=== PATIENT | female | born 1985 | race Caucasian/White ===

== ENCOUNTER 2016-06-17 09:25 | Emergency (ER) | payer OTHER ==
[2016-06-17] MEDS ORDERED: ONDANSETRON 4 MG/2ML 2 ML VIAL ONE (10:32)
[2016-06-17] MEDS ORDERED: NALBUPHINE HCL 10 MG/ML AMP ONE ×2 (10:32→13:49)
[2016-06-17 11:00] LABS: BASO % 0.4 % (0.2-1.0); EOS # 0.2 (0.0-0.5); EOS % 1.8 % (0.9-2.9); HEMATOCRIT 40.2 % (37.0-47.0); HEMOGLOBIN 13.5 gm/l (12.0-16.0); IMM NEUT% 0.4 % (0-1); LYMPH # 3.5 (1.0-4.8); LYMPH % 33.6 % (15-45); MEAN CELL VOLUME 84.3 fl (81.0-99.0); MEAN CORPUSCULAR HEMOGLOBIN 28.3 pg (27.0-31.0); MEAN CORPUSCULAR HGB CONC 33.6 g/dl (33.0-37.0); MEAN PLATELET VOLUME 10.2 fl (7.4-10.4); MONO # 0.6 (0.0-0.8); NEUT % 57.8 % (43-75); PLATELET COUNT 290 K/mm3 (130-400); RED CELL DISTRIBUTION WIDTH 12.1 % (11.5-14.5)
[2016-06-17 11:02] LABS: HCG,QUALITATIVE URINE NEGATIVE; URINE BILIRUBIN NEGATIVE (NEGATIVE); URINE BLOOD NEGATIVE (NEGATIVE); URINE GLUCOSE (UA) NEGATIVE (NEGATIVE); URINE LEUKOCYTE ESTERASE NEGATIVE (NEGATIVE); URINE NITRITE NEGATIVE (NEGATIVE); URINE PROTEIN NEGATIVE (NEGATIVE); URINE UROBILINOGEN NORMAL (0-1 mg/dl)
[2016-06-17 11:03] LABS: URINE APPEARANCE CLEAR; URINE COLOR YELLOW
[2016-06-17 11:12] LABS: ALB/GLOB RATIO 1.4 (>1.0); ALBUMIN 4.5 gm/dL (3.5-5.7); CALCIUM 9.6 mg/dL (8.6-10.3)
--- NOTE | 2016-06-17 12:34 | CT ---
Examination: Noncontrast CT scans of the Abdomen and Pelvis Clinical indication: Right lower abdominal pain. Comparison:None Technique: Multidetector CT scanner was utilized. No oral or intravenous contrast was administered. Axial images were acquired from just above the domes of the diaphragm to the iliac crest. A CT scan of the pelvis was carried out from the iliac crest to the initial tuberosities. Sagittal, axial and coronal stacked 5 mm images were reviewed. Findings: Abdomen CT (noncontrast): The lung bases are clear and are without mass or pleural effusion. The liver is unremarkable. The gallbladder is within normal limits. There is no evidence of biliary obstruction. The spleen size and attenuation are within normal limits. The pancreas is normal in size and contours. No inflammatory stranding is identified. The pancreatic duct is unremarkable. The adrenals are unremarkable. The kidneys are without mass or hydronephrosis. No nephrolithiasis is identified. The abdominal aorta unremarkable. There is no retroperitoneal adenopathy identified. The stomach is unremarkable. The visualized segments of small and large bowel are within normal limits. The osseous structures exhibit no displaced fracture. No lytic or blastic lesions are identified. Pelvic CT findings (noncontrast): The distal ureters and bladder are unremarkable. Uterus is anteverted. Intrauterine device is noted in position. There are no adnexal masses. No adenopathy is identified. The distal abdominal aorta and iliac vessels are within normal limits. The visualized segments of small and large bowel are unremarkable. The appendix is unremarkable. No displaced fractures are identified. There are no gross osteolytic or blastic lesions. The overlying soft tissues are unremarkable. IMPRESSION: 1. No acute intra-abdominal or intrapelvic obstructive or inflammatory pathology. 2. Intrauterine device is noted in an anteverted uterus. Adnexa are within normal limits for age. 3. No free air or free fluid is identified. The findings were uploaded to the electronic medical record for review at approximately 12:35 PM 06/17/2016
[2016-06-18 15:37] LABS: CHLAMYDIA BD Negative (Negative); N.GONORRHOEAE BD Negative (Negative); SOURCE Urine (())
== END 2016-06-17 14:00 | disposition home or self-care (01) ==
LOC: ED 09:25
DX: R10.9 Unspecified abdominal pain (principal)
CPT/HCPCS: 87491; 87591; 81025; 85025; 80053; 81003; 74176; 96375; 96376; 99284 ×2; 96374; J2300 ×2; J2405